=== PATIENT | male | born 1980 | race Caucasian/White ===

== ENCOUNTER 2018-02-02 21:00 | Emergency (ER) | payer MEDICAID ==
[2018-02-02] MEDS: LIDOCAINE/MYLANTA 40 ML BTL PO (22:55)
== END 2018-02-03 00:05 | disposition home or self-care (01) ==
LOC: FTE 02-03 00:05
DX: R09.89 Other specified symptoms and signs involving the circulatory and respiratory systems (principal)
CPT/HCPCS: 71045; 99283-25